=== PATIENT | male | born 2000 | race Caucasian/White ===

== ENCOUNTER 2019-01-03 15:30 | Outpatient (CLI) | payer OTHER ==
--- NOTE | 2019-01-03 16:22 | RAD ---
XR Wrist 5 Lt View STANDARD HISTORY:Follow-up scaphoid fracture COMPARISON: None. FINDINGS: There is evidence for a healing fracture of the waist of the scaphoid. There is still subtl e lucency identified. No plain film evidence for avascular necrosis. The proximal pole does not appear sclerotic. No other findings. IMPRESSION: Healing fracture of the waist of scaphoid.
== END 2019-01-03 15:31 | disposition home or self-care (01) ==
LOC: BICRAD 15:30
PROVIDERS: ATTEND Orthopaedic Surgery Pediatric Orthopaedic Surgery
DX: S62.002G Unspecified fracture of navicular [scaphoid] bone of left wrist, subsequent encounter for fracture with delayed healing (principal)